=== PATIENT | female | born 1965 | race Two or more races ===

== ENCOUNTER 2023-07-11 08:02 | Outpatient (AMB) | payer MEDICAID, SELFPAY ==
--- NOTE | 2023-07-11 08:05 | A.OFFVIS_ITS ---
Vital Signs 07/11/23 08:12 Height 5 ft 6 in Weight 160 lb BMI 25.8 BP 130/63 Blood Pressure Location Lt brachial Position Sitting Pulse 65 Intake Visit Reasons: Constipation Intake Note: Patient new consult for constipation. Patient cc: constipation, lower abdominal pain, and abdominal inflammation, acid reflex with burning sensation, and swallowing problems, patient feeling throat closing with dry food. Heavy Equipment Plumbing Supervisor Required: Yes Heavy Equipment Plumbing Supervisor Name: Rickie Babb Accompanied by: Self / Same As Patient Allergies No Known Allergies [No Known Allergies*] Allergy (Verified 07/11/23 08:05) Medication List - Last Reconciled 07/11/23 by Audelia Mcdonald PA-C No Known Home Meds HPI Comments Details: 2nd opinion A 57 y/o female referred with chronic constipation- she had an EGD and colonoscopy w/in eduar past year- at [facility]- she had h.pylori- has acid reflux, bloating. She has constipation- taking laxatives- gets abdominal pain-diffuse, nonspecific gets better after BM- She was seen in February by gI @ [facility]- recommended- ceratin foods- cannot recall details She is not taking any medications at all- She has no nausea, vomiting hematemesis, hematochezia fever PFSH Surgical History (Updated 07/11/23 @ 14:02 by Audelia Mcdonald PA-C) Hx of abdominoplasty Hx of total knee replacement Hx of section Family History Father Arthritis Mother HTN (hypertension) Social History Household Members: Family Alcohol intake: never Patient Tobacco Use Status: Never used Tobacco Review of Systems Const All systems reviewed & are unremarkable except as noted in HPI and below Card Denies chest pain GI Reports abdominal pain, Reports bloating, Denies hematochezia, Reports constipation, Reports heartburn, Denies nausea and Denies vomiting Musc Details: arthritis Reports back pain and Reports arthralgias Physical Exam Vital Signs: Last Vital Signs Pulse 65 07/11/23 08:12 BP 130/63 07/11/23 08:12 BMI result Body Mass Index 25.8 Const General: cooperative, healthy appearing, comfortable and no acute distress Orientation/consciousness: patient oriented x3 Limitations: language barrier Eyes Sclerae: sclerae normal Resp Effort & Inspection: normal respiratory effort and able to speak in complete sentences Auscultation: clear to auscultation bilaterally, no rales, no rhonchi and no wheezes Cardio Rate: regular rate Rhythm: regular rhythm Heart sounds: S1 normal heart sound present and S2 normal heart sound present GI Palpation (GI): Soft to palpation and nontender Auscultation: normal bowel sounds Skin General skin exam: no rashes or lesions noted Neuro General: patient oriented x3 Extrem General: Yes full ROM Psych Appearance: grossly normal and well kempt Mental Status: mental status grossly normal Speech and movement: Normal speech and movement present and Clear speech present Affect: Anxious affect present Attitude: cooperative Thought process: Normal thought process present Thought content: Normal thought content present Assessment & Plan Assessment & Plan (1) Abdominal pain: Comment: Diffuse, nonspecific improved with being Code(s): R10.9 - Unspecified abdominal pain Category: Medical (2) Acid reflux: Comment: History H pylori Code(s): K21.9 - Gastro-esophageal reflux disease without esophagitis Category: Medical Plan: H pylori stool antigen if positive will treat (3) Chronic constipation: Code(s): K59.09 - Other constipation Category: Medical Plan: Consistent bowel regimen High-fiber (4) History of Helicobacter pylori infection: Code(s): Z86.19 - Personal history of other infectious and parasitic diseases Category: Medical Plan: Stool antigen (5) History of colonoscopy: Comment: [facility] within 1 year per patient reported as normal Code(s): Z98.890 - Other specified postprocedural states Category: Surgical (6) History of endoscopy: Comment: At [facility] within the past year reported as normal Code(s): Z98.890 - Other specified postprocedural states Category: Surgical Plan HP stool- if positive treat Reflux precautions CBC. CMP, TSH Bowel regimen HFD Get previous records Call with concerns Orders: Orders H pylori Ag Stool Today A04.8 - Other specified bacterial intestinal infections Comprehensive Met. Panel Today K58.9 - Irritable bowel syndrome without diarrhea Complete Blood Count Auto Diff Today K21.9 - Gastro-esophageal reflux disease without esophagitis, K59.09 - Other constipation, R10.9 - Unspecified abdominal pain Thyroid Stimulating Hormone Today R19.8 - Other specified symptoms and signs involving the digestive system and abdomen Medications: New omeprazole 40 mg (2 x 20 mg) PO DAILY 30 caps 5RF docusate sodium (Colace) 200 mg (2 x 100 mg) PO BEDTIME 60 caps 5RF 30 days polyethylene glycol 3350 (Miralax) 17 grams PO DAILY 510 grams 6RF psyllium husk (Metamucil) mix into at least 8 oz of water or juice before administering 1 tbsp PO DAILY 660 grams 5RF 30 days Patient Instructions: HP stool- idf positive treat CBC. CMP, TSH Bowel regimen, lit given HFD maintain hydration Get previous records Call with concerns Coding Level of Care Code New Pt Level 4 (75327) Diagnoses Abdominal pain R10.9 Acid reflux K21.9 Chronic constipation K59.09 History of Helicobacter pylori infection Z86.19 History of colonoscopy Z98.890 History of endoscopy Z98.890 Time Spent (min) 35 Comment [id number], 2nd opinion
[2023-07-11 08:12] VITALS: BP 130/63; PULSE 65; BMI 25.8
== END 2023-07-11 08:50 | disposition home or self-care (01) ==
PROVIDERS: PCP Internal Medicine; Visit Provider Physician Assistant
DX: R10.9 Unspecified abdominal pain (principal); K21.9 Gastro-esophageal reflux disease without esophagitis; K59.09 Other constipation; Z86.19 Personal history of other infectious and parasitic diseases; Z98.890 Other specified postprocedural states
CPT/HCPCS: 99204

== ENCOUNTER → 2023-07-11 08:02 | Outpatient (BNVA) | payer MEDICAID, SELFPAY | PROVIDERS: PCP Internal Medicine; Visit Provider Physician Assistant | DX: K21.9 Gastro-esophageal reflux disease without esophagitis (principal); K59.09 Other constipation; R10.9 Unspecified abdominal pain; Z86.19 Personal history of other infectious and parasitic diseases; Z98.890 Other specified postprocedural states | CPT/HCPCS: 99212 ==

== ENCOUNTER 2023-07-12 13:54 | Outpatient (REF) | payer MEDICAID, SELFPAY | END 2023-07-12 13:55 | disposition home or self-care (01) | LOC: HO.LNP 13:54 | PROVIDERS: Visit Provider Physician Assistant | DX: A04.8 Other specified bacterial intestinal infections (principal) | CPT/HCPCS: 87338 ==

== ENCOUNTER 2023-07-20 12:59 | Outpatient (AMB) | payer MEDICAID, SELFPAY ==
--- NOTE | 2023-07-20 13:01 | MHC.OFFVIS ---
Vital Signs 07/20/23 13:03 Height 5 ft 6 in Weight 161 lb 9.581 oz BMI 26.1 BP 92/60 Blood Pressure Location Rt brachial Position Sitting Pulse 65 Pulse Oximetry (%) 98 Intake Visit Reasons: BL hand OA/lvm Intake Note: New patient, externally referred by Charlotte Hernandez at [facility], presents to office today for ALLA hand OA. Reports generalized myalgias. Formerly seeing a social services analyst, unsure who she saw. Allergies No Known Allergies [No Known Allergies*] Allergy (Verified 07/20/23 13:04) HPI Comments Details: Mrs. Holt 58-year-old female here on referral for evaluation of multiple joint pains. Patient describes that she has with hand pain and stiffness in the morning which takes at least one 1 hour to improve. --the pain suddenly increased to other joints 6 months ago --12 years of arthritis - injections to elbow left 7 years, left heel; none in shoulders. Elbow pain brought on by weight lifting. --currently takes nothing for the joint pain --stomach problems, treated for HPylori --rash - 3 months ago mild rash left side of upper lip, vesicles then went away. --denies sun sensitivity but says she feels more hot in the sun. --no dry eyes; but dry mouth in morning likely due to mouth breathing at night. --swallows food OK; had endoscopy for Hpylori assessment --denies diarrhea, has constipation - uses medication. --no uveiitis, mouth sores. --finds it difficult to brush teeth or comb hair, lifting arms is challenging --hands get painful when she touches her phone, pain travels from palm up arm; burning pain, hand gets sleepy. --no swelling to large joints, lifts left shoulder overhead but not right --Xray to right shoulder [address] [facility]; Did PT - more pain, not helpful --touches toes but feels tightness across lower back. --exercise 1 hour two times per week, 8lb hand weights - but stopped 6 months ago.; Also 10 years ago run 10 miles per week. --denies SOB with activity or lying down --denies Pleuritis, pericarditis. --Right knee scoped to fix tears --Denies TKA and no incision scar seen on PE. --previous Rheum - possible [facility] - treated with injections --done water therapy before for joints --had Tramadol for pain before. GI Visit 07/11/2023: 2nd opinion A 57 y/o female referred with chronic constipation- she had an EGD and colonoscopy w/in eduar past year- at [facility]- she had h.pylori- has acid reflux, bloating. She has constipation- taking laxatives- gets abdominal pain-diffuse, nonspecific gets better after BM- She was seen in February by gI @ [facility]- recommended- ceratin foods- cannot recall details She is not taking any medications at all- She has no nausea, vomiting hematemesis, hematochezia fever [facility] Medical History (Updated 07/25/23 @ 15:45 [facility] Hypovitaminosis D Bilateral chronic knee pain Pain in joint involving multiple sites Osteoarthrosis, generalized, hand Surgical History Hx of abdominoplasty Hx of total knee replacement Hx of section Family History (Updated 07/20/23 @ 13:04 by TRISHA Bailey) Father Arthritis Mother HTN (hypertension) Social History (Updated 07/20/23 @ 13:05 by TRISHA Bailey) Household Members: Family Alcohol intake: never Patient Tobacco Use Status: Never used Tobacco Current occupational status: unemployed Review of Systems Const All systems reviewed & are unremarkable except as noted in HPI and below Physical Exam Vital Signs: Last Vital Signs Pulse 65 07/20/23 13:03 BP 92/60 07/20/23 13:03 Pulse Ox 98 07/20/23 13:03 BMI result Body Mass Index 26.1 APPEARANCE: Patient in no acute distress EYES no redness, normal EARS:? External ear normal. NOSE/SINUS:? Airflow through both nares, no nasal discharge, no bleeding THROAT:? Oral mucosa moist, no ulcerations NECK:? No thyromegaly or masses, no adenopathy, trachea midline. HEART:? Regular rhythm, S1-S2 heard, no murmurs, rubs or gallops. LUNG:? Clear to percussion and auscultation EXTREMITIES:? No edema, no calf tenderness, normal peripheral pulses. NEURO:? Oriented and alert x3.? No focal weakness.? Reflexes symmetric.? Gait normal. SKIN:? There are no skin lesions evident. No objective signs of Raynaud's phenomenon. JOINT EXAM: Cervical Spine:.? Full range of motion without pain; no tenderness. Thoracic Spine:.? No scoliosis.? No tenderness on palpation. Lumbar Spine:.? Alignment normal.? Full range of motion without pain, with tenderness. Chest Wall:.? No tenderness, swelling, increased warmth or erythema. Hands:.? decreased range of motion with tenderness, swelling to DIPS but no increased warmth or erythema. Not able to make a full fist and has decreased comber fixer strength. Wrists:.? Normal range of motion with some tenderness but no swelling, increased warmth or erythema. Elbows:. Normal pain-free range of motion without tenderness, swelling, increased warmth or erythema. Shoulders:.?? Full range of motion without pain. No tenderness, weakness, swelling, increased warmth or erythema. Hips:.? Full range of motion without pain. Hip bursa:.? No tenderness. Knees:.?? Normal range of motion with tenderness around joint line but no swelling, increased warmth or erythema.? There is trace effusion but no crepitation Ankles:.? Normal pain-free range of motion without tenderness, swelling, increased warmth or erythema. Feet:.? Normal pain-free range of motion without tenderness, swelling, increased warmth or erythema. Tender points:? No tenderness to digital palpation at the occiput, trapezius, second rib, lateral epicondyle, knees, greater trochanter and gluteal area bilaterally. ? Results Reviewed Results Reviewed: Laboratory Tests 07/20/23 15:20 WBC 7.4 RBC 4.94 Hgb 14.3 Hct 41.1 ESR 9 C-Reactive Protein < 0.10 25-OH Vitamin D Total 29 L IgG Total 897 IgA Total 123 IgM 70 Rheumatoid Factor < 13.0 Cycl Citrul Peptide IgG <16 BALJIT Screen NEGATIVE Lyme Screen IgG & IgM <0.90 Hepatitis A IgM Ab Nonreactive Hep Bs Antigen Negative Hep B Core Total Ab Nonreactive Hepatitis C Ab (EIA) Nonreactive TB Test Nil Control Passed FINDINGS: Right hand. Mild degenerative changes in the first carpometacarpal joint. Tiny punctate calcifications adjacent to the base. Mild osteoarthritic changes in multiple IP joints, most notable in the fourth and fifth DIP joints. Focal cystic lucency at the head of the third digit middle phalanx. Focal soft tissue swelling adjacent to multiple IP joints. Left hand. Mild degenerative changes in the first carpometacarpal joint. Mild osteoarthritic changes and multiple IP joints, most notable at the fifth digit DIP joint. Focal soft tissue swelling adjacent to multiple IP joints. XR/XR hand RT 2V IMPRESSION: Mild degenerative changes in the bilateral hands. [address] [address] XRay Report Signed Patient: Yanet Lance MR#: [id number] : 1965 Acct:[id number] Age/Sex: 57 / F ADM Date: 07/20/23 Loc: HO.LAB Attending Dr: Sondra WIGGINS Ordering Physician: Sondra Cote Date of Service: 07/20/23 Procedure(s): XR knee RT 3V Accession Number(s): [id number] cc: DEZ HALL MD; Sondra Cote~ Exam: X-rays bilateral knees INDICATION: Pain and unspecified joint TECHNIQUE: 3 views of each knee. COMPARISON: 11/30/2018 FINDINGS: Right knee: Bones are diffusely demineralized. No significant joint effusion. Small tricompartmental osteophytes. Asymmetric lateral narrowing of the patellofemoral compartment. Mild narrowing of the medial and lateral compartments. Left knee: Bones are diffusely demineralized. No significant joint effusion. Small tricompartmental osteophytes. Asymmetric lateral narrowing of the patellofemoral compartment. Mild narrowing of the medial and lateral compartments. Assessment & Plan Assessment & Plan (1) Osteoarthrosis, generalized, hand: Code(s): M15.9 - Polyosteoarthritis, unspecified Category: Medical (2) Pain in joint involving multiple sites: Code(s): M25.50 - Pain in unspecified joint Category: Medical (3) Bilateral chronic knee pain: Code(s): M25.561 - Pain in right knee; M25.562 - Pain in left knee; G89.29 - Other chronic pain Category: Medical Plan #Multiple Joint Pain: Patient with signs of inflammation to her hand IP joints (see PE). We will do further work-up with Rheum labs and joint xrays. She has seen a Rheuamtologist before and has received multiple injections to different joints (HPI). She is not eager to start medications so we will hold prednisone. I think essentially she thinks there may not be an autoimmune component to her joint pain and just wants to be able to be treated acutely. It is not clear if she was offered immunosuppressive treatment before for inflammatory arthritis and refused. She offeres vague recollections of discussions on MTX, HUMIRA. f/u 1 month I spent 35 minutes reviewing history, evaluating patient and documenting Orders: Orders XR hand RT 2V 07/20/23 M15.9 - Polyosteoarthritis, unspecified XR hand LT 2V 07/20/23 M15.9 - Polyosteoarthritis, unspecified Erythrocyte Sedimentation Rate 07/20/23 M15.9 - Polyosteoarthritis, unspecified, M25.50 - Pain in unspecified joint Complete Blood Count Auto Diff 07/20/23 M15.9 - Polyosteoarthritis, unspecified, M25.50 - Pain in unspecified joint Anti-Centromere B Antibodies 07/20/23 M15.9 - Polyosteoarthritis, unspecified, M25.50 - Pain in unspecified joint Aldolase 07/20/23 M15.9 - Polyosteoarthritis, unspecified, M25.50 - Pain in unspecified joint Immunoglobulins,IgG IgA IgM 07/20/23 M15.9 - Polyosteoarthritis, unspecified, M25.50 - Pain in unspecified joint Immunofixation, Random Urine 07/20/23 M15.9 - Polyosteoarthritis, unspecified, M25.50 - Pain in unspecified joint Protein Electrophoresis, Serum 07/20/23 M15.9 - Polyosteoarthritis, unspecified, M25.50 - Pain in unspecified joint Vitamin D 25-OH (D2 and D3) 07/20/23 M15.9 - Polyosteoarthritis, unspecified, M25.50 - Pain in unspecified joint Rheumatoid Factor 07/20/23 M15.9 - Polyosteoarthritis, unspecified, M25.50 - Pain in unspecified joint Comprehensive Met. Panel 07/20/23 M15.9 - Polyosteoarthritis, unspecified, M25.50 - Pain in unspecified joint C Reactive Protein 07/20/23 M15.9 - Polyosteoarthritis, unspecified, M25.50 - Pain in unspecified joint BALJIT Reflex Titer and Pattern 07/20/23 M15.9 - Polyosteoarthritis, unspecified, M25.50 - Pain in unspecified joint Anti DNA DS Antibody 07/20/23 M15.9 - Polyosteoarthritis, unspecified, M25.50 - Pain in unspecified joint Anti Extractable Nuclear Ag 07/20/23 M15.9 - Polyosteoarthritis, unspecified, M25.50 - Pain in unspecified joint Hepatitis A,B,C Profile 07/20/23 M15.9 - Polyosteoarthritis, unspecified, M25.50 - Pain in unspecified joint Lyme IgG/IgM w/reflex to WB 07/20/23 M15.9 - Polyosteoarthritis, unspecified, M25.50 - Pain in unspecified joint Scleroderma 70 Antibody 07/20/23 M15.9 - Polyosteoarthritis, unspecified, M25.50 - Pain in unspecified joint Sjogren's Antibodies 07/20/23 M15.9 - Polyosteoarthritis, unspecified, M25.50 - Pain in unspecified joint T Spot TB 07/20/23 M15.9 - Polyosteoarthritis, unspecified, M25.50 - Pain in unspecified joint Uric Acid 07/20/23 M15.9 - Polyosteoarthritis, unspecified, M25.50 - Pain in unspecified joint Cyclic Citrullinated Peptide 07/20/23 M15.9 - Polyosteoarthritis, unspecified, M25.50 - Pain in unspecified joint XR knee LT 3V 07/20/23 M25.50 - Pain in unspecified joint, M25.561 - Pain in right knee, M25.562 - Pain in left knee, G89.29 - Other chronic pain XR knee RT 3V 07/20/23 M25.50 - Pain in unspecified joint, M25.561 - Pain in right knee, M25.562 - Pain in left knee, G89.29 - Other chronic pain Coding Level of Care Code New Pt Level 4 (53367) Diagnoses Osteoarthrosis, generalized, hand M15.9 Pain in joint involving multiple sites M25.50 Bilateral chronic knee pain M25.561; M25.562; G89.29
[2023-07-20 13:03] VITALS: BP 92/60; PULSE 65; O2SAT 98; BMI 26.1
== END 2023-07-20 13:51 | disposition home or self-care (01) ==
LOC: HO.RHE 12:59
PROVIDERS: PCP Internal Medicine; Visit Provider Nurse Practitioner Family
DX: M15.9 Polyosteoarthritis, unspecified (principal); M25.50 Pain in unspecified joint; M25.561 Pain in right knee; M25.562 Pain in left knee; G89.29 Other chronic pain
CPT/HCPCS: 99204

== ENCOUNTER 2023-07-20 12:59 | Outpatient (REF) | payer MEDICAID, SELFPAY ==
--- NOTE | ~2023-07-20 | XR_ITS ---
Exam: X-rays bilateral knees INDICATION: Pain and unspecified joint TECHNIQUE: 3 views of each knee. COMPARISON: 11/30/2018 FINDINGS: Right knee: Bones are diffusely demineralized. No significant joint effusion. Small tricompartmental osteophytes. Asymmetric lateral narrowing of the patellofemoral compartment. Mild narrowing of the medial and lateral compartments. Left knee: Bones are diffusely demineralized. No significant joint effusion. Small tricompartmental osteophytes. Asymmetric lateral narrowing of the patellofemoral compartment. Mild narrowing of the medial and lateral compartments. XR/XR knee LT 3V IMPRESSION: Mild degenerative changes in the bilateral knees.
--- NOTE | ~2023-07-20 | XR_ITS ---
Exam: X-rays bilateral knees INDICATION: Pain and unspecified joint TECHNIQUE: 3 views of each knee. COMPARISON: 11/30/2018 FINDINGS: Right knee: Bones are diffusely demineralized. No significant joint effusion. Small tricompartmental osteophytes. Asymmetric lateral narrowing of the patellofemoral compartment. Mild narrowing of the medial and lateral compartments. Left knee: Bones are diffusely demineralized. No significant joint effusion. Small tricompartmental osteophytes. Asymmetric lateral narrowing of the patellofemoral compartment. Mild narrowing of the medial and lateral compartments. XR/XR knee RT 3V IMPRESSION: Mild degenerative changes in the bilateral knees.
--- NOTE | ~2023-07-20 | XR_ITS ---
EXAM: X-RAYS BILATERAL HANDS CLINICAL INFORMATION: Polyarthritis unspecified. COMPARISON: None. TECHNIQUE: 3 views of each hand. FINDINGS: Right hand. Mild degenerative changes in the first carpometacarpal joint. Tiny punctate calcifications adjacent to the base. Mild osteoarthritic changes in multiple IP joints, most notable in the fourth and fifth DIP joints. Focal cystic lucency at the head of the third digit middle phalanx. Focal soft tissue swelling adjacent to multiple IP joints. Left hand. Mild degenerative changes in the first carpometacarpal joint. Mild osteoarthritic changes and multiple IP joints, most notable at the fifth digit DIP joint. Focal soft tissue swelling adjacent to multiple IP joints. XR/XR hand RT 2V IMPRESSION: Mild degenerative changes in the bilateral hands.
--- NOTE | ~2023-07-20 | XR_ITS ---
EXAM: X-RAYS BILATERAL HANDS CLINICAL INFORMATION: Polyarthritis unspecified. COMPARISON: None. TECHNIQUE: 3 views of each hand. FINDINGS: Right hand. Mild degenerative changes in the first carpometacarpal joint. Tiny punctate calcifications adjacent to the base. Mild osteoarthritic changes in multiple IP joints, most notable in the fourth and fifth DIP joints. Focal cystic lucency at the head of the third digit middle phalanx. Focal soft tissue swelling adjacent to multiple IP joints. Left hand. Mild degenerative changes in the first carpometacarpal joint. Mild osteoarthritic changes and multiple IP joints, most notable at the fifth digit DIP joint. Focal soft tissue swelling adjacent to multiple IP joints. XR/XR hand LT 2V IMPRESSION: Mild degenerative changes in the bilateral hands.
[2023-07-20 15:24] LABS: MANUAL DIFF FLAG NO
[2023-07-20 15:29] LABS: Basophils Percent Auto 0.4 % (0-2); Eosinophils Absolute Auto 0.2 X10*3/uL (0.0-0.4); Hematocrit 41.1 % (37.0-47.0); Hemoglobin 14.3 g/dl (12.0-16.0); Imm Gran Abs Auto 0.02 X10*3/uL (0.00-0.03); Imm Gran Pct Auto 0.3 % (0.0-0.4); Lymphocytes Absolute Auto 2.8 X10*3/uL (1.2-4.9); Lymphocytes Percent Auto 37.3 % (20-40); Mean Corpuscular HGB Conc 34.8 g/dl (31.0-35.0); Mean Corpuscular Hemoglobin 28.9 pg (27.0-33.0); Mean Corpuscular Volume 83.2 fL (80.0-98.0); Mean Platelet Volume 11.7 fL (9.4-12.3); Monocytes Absolute Auto 0.5 X10*3/uL (0.1-1.2); Neutrophils Absolute Auto 3.9 x10*3/uL (2.0-8.3); Platelet Count 242 X10*3/uL (160-400); Red Blood Count 4.94 X10*6/uL (4.20-5.50); Red Cell Distribution Width 12.4 % (11.0-16.0); White Blood Count 7.4 X10*3/uL (4.8-10.8)
[2023-07-20 16:21] LABS: Uric Acid 4.4 mg/dL (2.4-5.7)
[2023-07-20 16:24] LABS: Erythrocyte Sedimentation Rate 9 MM/HR (0-20)
[2023-07-20 16:29] LABS: Alanine Aminotransferase 18 U/L (0-31); Albumin Level 4.7 g/dL (3.5-5.0); Alkaline Phosphatase 74 U/L (39-117); Anion Gap 15 (12-20); Aspartate Amino Transferase 20 U/L (5-31); Bilirubin Total 0.3 mg/dL (0.0-1.0); Blood Urea Nitrogen 19 mg/dL (9-16); C Reactive Protein < 0.10 mg/dL (< or = 0.50); Calcium 10.1 mg/dL (8.4-10.2); Carbon Dioxide 23 mmol/L (22-29); Chloride 105 mmol/L (96-108); Estimated Glomerular Filt Rate > 60; Glucose Random 108 mg/dL (60-115); Potassium 3.9 mmol/L (3.3-5.1); Sodium 139 mmol/L (135-145); Total Protein 7.7 g/dL (6.5-8.0)
[2023-07-20 16:31] LABS: Rheumatoid Factor < 13.0 IU/mL (<15.0)
[2023-07-20 16:45] LABS: Thyroid Stimulating Hormone 1.99 uIU/mL (0.32-4.0)
[2023-07-21 08:08] LABS: HBS Num1 0.65 mIU/mL (0-7.99); HBc Num1 0.06 S/CO (0.00-0.79); HBsAGNum1 0.28 S/CO (0.00-0.99); Hepatitis A Antibody IgM 0.34 Index (0-0.79); Hepatitis B Core Antibody Nonreactive (Nonreactive); Hepatitis B Surface Antigen Negative (Negative); ~HepC Num1 0.05 S/CO (0.00-0.79); ~Hepatitis A Antibody IgM Nonreactive (Nonreactive); ~Hepatitis B Surface Antibody NONREACTIVE (Nonreactive); ~Hepatitis C Antibody Nonreactive (Nonreactive)
[2023-07-21 20:13] LABS: Anti-Centromere B Antibodies <1.0 NEG AI (<1.0 NEG)
[2023-07-21 21:24] LABS: Lyme Abs Screen <0.90 index
[2023-07-22 00:54] LABS: IgA 123 mg/dL (47-310); IgG 897 mg/dL (600-1640); IgM 70 mg/dL (50-300)
[2023-07-23 16:54] LABS: TS Negative Control Passed; TS Panel A 0; TS Panel B 0; TS Positive Control Passed; TSpotTB Negative (Negative)
[2023-07-24 06:04] LABS: Aldolase 5.3 U/L (<=8.1)
[2023-07-24 14:53] LABS: Anti Nuclear Antibody Screen NEGATIVE (NEGATIVE)
[2023-07-24 16:33] LABS: Cyclic Citrullinated Peptide <16 UNITS
[2023-07-25 13:29] LABS: Vitamin D 25-OH, D2 <4 ng/mL; Vitamin D 25-OH, D3 29 ng/mL; Vitamin D 25-OH, Total 29 ng/mL (30-100)
[2023-07-25 16:43] LABS: Prot Elec - Albumin 4.6 g/dL (3.8-4.8); Prot Elec - Alpha1 0.3 g/dL (0.2-0.3); Prot Elec - Alpha2 0.8 g/dL (0.5-0.9); Prot Elec - Beta 1 0.5 g/dL (0.4-0.6); Prot Elec - Beta 2 0.3 g/dL (0.2-0.5); Prot Elec - Gamma 0.8 g/dL (0.8-1.7); Prot Elec - Total Protein 7.2 g/dL (6.1-8.1)
[2023-07-26 20:09] LABS: Anti DNA DS Antibody <1 IU/mL; Antibody to SS-A Antigen <1.0 NEG AI (<1.0 NEG); Antibody to SS-B Antigen <1.0 NEG AI (<1.0 NEG); SM/Ribonucleoprotein Ab <1.0 NEG AI (<1.0 NEG); Scleroderma 70 Antibody <1.0 NEG AI (<1.0 NEG); Smith Protein <1.0 NEG AI (<1.0 NEG)
== END 2023-07-20 13:00 | disposition home or self-care (01) ==
LOC: HO.LAB 12:59
PROVIDERS: Physician Assistant; PCP Internal Medicine; Visit Provider Nurse Practitioner Family
DX: M15.9 Polyosteoarthritis, unspecified (principal); M25.50 Pain in unspecified joint; M25.561 Pain in right knee; M25.562 Pain in left knee; G89.29 Other chronic pain; R19.8 Other specified symptoms and signs involving the digestive system and abdomen; K58.9 Irritable bowel syndrome, unspecified; K59.09 Other constipation; K21.9 Gastro-esophageal reflux disease without esophagitis; R10.9 Unspecified abdominal pain
CPT/HCPCS: 36415; 73120; 73562; 80053; 82085; 82306; 82784; 84165; 84443; 84550; 85025; 85652; 86038; 86140; 86200; 86225; 86235; 86335; 86431; 86481; 86617; 86618; 86704; 86706; 86709; 86803; 87340; 99212

== ENCOUNTER 2023-08-17 07:47 | Outpatient (AMB) | payer MEDICAID, SELFPAY ==
--- NOTE | 2023-08-17 07:47 | MHC.OFFVIS ---
Vital Signs 08/17/23 07:55 Height 5 ft 6 in Weight 163 lb 2.273 oz BMI 26.3 BP 112/66 Blood Pressure Location Rt brachial Position Sitting Pulse 59 Pulse Source Pulse Oximeter Pulse Oximetry (%) 98 Oxygen Delivery Method Room Air Intake Visit Reasons: multiple joint pain Intake Note: Pt last seen 07/20/23 presents today with complaints of increased joint pain especially right shoulder. Reports issues with stomach unable to take oral meds; using diclofenac gel for pain. 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 Continues to feel about the same. Her main complaint today is right shoulder pain as well as right thumb MCP joint pain. Applies Voltaren gel with little benefit Initial history by Sondra Hermosillo 06/2023: Mrs. Holt 58-year-old female here on referral for evaluation of multiple joint pains. Patient describes that she has with hand pain and stiffness in the morning which takes at least one 1 hour to improve. --the pain suddenly increased to other joints 6 months ago --12 years of arthritis - injections to elbow left 7 years, left heel; none in shoulders. Elbow pain brought on by weight lifting. --currently takes nothing for the joint pain --stomach problems, treated for HPylori --rash - 3 months ago mild rash left side of upper lip, vesicles then went away. --denies sun sensitivity but says she feels more hot in the sun. --no dry eyes; but dry mouth in morning likely due to mouth breathing at night. --swallows food OK; had endoscopy for Hpylori assessment --denies diarrhea, has constipation - uses medication. --no uveiitis, mouth sores. --finds it difficult to brush teeth or comb hair, lifting arms is challenging --hands get painful when she touches her phone, pain travels from palm up arm; burning pain, hand gets sleepy. --no swelling to large joints, lifts left shoulder overhead but not right --[facility] to [facility]; Did PT - more pain, not helpful --touches toes but feels tightness across lower back. --exercise 1 hour two times per week, 8lb hand weights - but stopped 6 months ago.; Also 10 years ago run 10 miles per week. --denies SOB with activity or lying down --denies Pleuritis, pericarditis. --Right knee scoped to fix tears --Denies TKA and no incision scar seen on PE. --previous Rheum - possible [facility] - treated with injections --done water therapy before for joints --had Tramadol for pain before. [facility] Medical History Hypovitaminosis D Bilateral chronic knee pain Pain in joint involving multiple sites Osteoarthrosis, generalized, hand Surgical History Hx of abdominoplasty Hx of total knee replacement Hx of section Family History Father Arthritis Mother HTN (hypertension) Social History Household Members: Family Alcohol intake: never Patient Tobacco Use Status: Never used Tobacco Current occupational status: unemployed Review of Systems [facility] [place] arthralgias, Reports joint swelling and Reports stiffness Physical Exam Vital Signs: Last Vital Signs Pulse 59 08/17/23 07:55 BP 112/66 08/17/23 07:55 Pulse Ox 98 08/17/23 07:55 Oxygen Delivery Method Room Air 08/17/23 07:55 BMI result Body Mass Index 26.3 Const General: cooperative, healthy appearing and comfortable Nutritional Appearance: overweight Orientation/consciousness: patient oriented x3 Limitations: no limitations HEENT Head: Yes normocephalic and Yes atraumatic Mouth: moist mucous membranes Resp Effort & Inspection: normal respiratory effort and able to speak in complete sentences Auscultation: clear to auscultation bilaterally Cardio Rate: regular rate Skin General skin exam: no rashes or lesions noted Neuro General: patient oriented x3 Extrem Other: Osteoarthritic changes of both hands with prominent Heberden's and Vy's nodes Bilateral prominent MCP joints, slight swelling and tenderness, R>L Significantly limited range of motion right shoulder with positive empty can test Osteoarthritic changes of feet Office Procedures Joint Injection/Drain Joint Injection/Drain Primary Site: right shoulder Prep: site was prepped using sterile technique and ethochloride spray was applied Injected: 40 mg of, Kenalog and other (1 mL of 1% lidocaine) Approach Used: posterolateral Procedure: The patient tolerated the procedure well Coding Details: With patient's consent. The right shoulder was prepped ChloraPrep and alcohol. The subacromial space was injected with 40 mg of triamcinolone and 1 cc of lidocaine. Patient tolerated the procedure well no apparent immediate side effects. 76763 - Large joint Procedure code (CPT) selection complete Results Reviewed Results Reviewed: Laboratory Tests 07/20/23 15:20 WBC 7.4 RBC 4.94 Hgb 14.3 Hct 41.1 ESR 9 C-Reactive Protein < 0.10 25-OH Vitamin D Total 29 L IgG Total 897 IgA Total 123 IgM 70 Rheumatoid Factor < 13.0 Cycl Citrul Peptide IgG <16 BALJIT Screen NEGATIVE Lyme Screen IgG & IgM <0.90 Hepatitis A IgM Ab Nonreactive Hep Bs Antigen Negative Hep B Core Total Ab Nonreactive Hepatitis C Ab (EIA) Nonreactive TB Test Nil Control Passed FINDINGS: Right hand. Mild degenerative changes in the first carpometacarpal joint. Tiny punctate calcifications adjacent to the base. Mild osteoarthritic changes in multiple IP joints, most notable in the fourth and fifth DIP joints. Focal cystic lucency at the head of the third digit middle phalanx. Focal soft tissue swelling adjacent to multiple IP joints. Left hand. Mild degenerative changes in the first carpometacarpal joint. Mild osteoarthritic changes and multiple IP joints, most notable at the fifth digit DIP joint. Focal soft tissue swelling adjacent to multiple IP joints. XR/XR hand RT 2V IMPRESSION: Mild degenerative changes in the bilateral hands. [address] [address] XRay Report Signed Patient: Yanet Lance MR#: [id number] : 1965 Acct:[id number] Age/Sex: 57 / F ADM Date: 07/20/23 Loc: HO.LAB Attending Dr: Sondra WIGGNIS Ordering Physician: Sondra Cote Date of Service: 07/20/23 Procedure(s): XR knee RT 3V Accession Number(s): [id number] cc: DEZ HALL MD; Sondra Cote [facility]~ Exam: X-rays bilateral knees INDICATION: Pain and unspecified joint TECHNIQUE: 3 views of each knee. COMPARISON: 11/30/2018 FINDINGS: Right knee: Bones are diffusely demineralized. No significant joint effusion. Small tricompartmental osteophytes. Asymmetric lateral narrowing of the patellofemoral compartment. Mild narrowing of the medial and lateral compartments. Left knee: Bones are diffusely demineralized. No significant joint effusion. Small tricompartmental osteophytes. Asymmetric lateral narrowing of the patellofemoral compartment. Mild narrowing of the medial and lateral compartments. Assessment & Plan Assessment & Plan (1) Generalized osteoarthritis: Code(s): M15.9 - Polyosteoarthritis, unspecified Category: Medical Plan: This is a 58-year-old female presented for evaluation of diffuse joint pain. On exam she has osteoarthritic changes of both hands. Comprehensive serology and inflammatory markers are normal. Clinical picture consistent with generalized osteoarthritis. Her main complaint today is right shoulder which is likely due to subacromial bursitis versus rotator cuff tendinopathy. With patient's consent, right shoulder was injected with Kenalog today. If no improvement in about a month, advised patient to call the clinic, can consider right shoulder MRI to rule out internal derangement (2) Osteoarthritis of hands, bilateral: Code(s): M19.041 - Primary osteoarthritis, right hand; M19.042 - Primary osteoarthritis, left hand Category: Medical Qualifiers: Osteoarthritis type: primary Qualified Code(s): M19.041 - Primary osteoarthritis, right hand; M19.042 - Primary osteoarthritis, left hand Plan: Most symptomatic is the 1st MCP joints. Referred patient to hand surgeon Plan I spent 30 minutes reviewing patient's chart, evaluating patient, ordering diagnostic workup, counseling patient and documenting in the chart Orders: Orders AMB Joint Injection/Aspiration Today M75.51 - Bursitis of right shoulder Referrals Hand Surgery Referral M19.041 - Primary osteoarthritis, right hand, M19.042 - Primary osteoarthritis, left hand Medications: Discontinued polyethylene glycol 3350 (Miralax) Discontinued Reason: Patient no longer taking 17 grams PO DAILY PRN psyllium husk (Metamucil) mix into at least 8 oz of water or juice before administering Discontinued Reason: Patient no longer taking 1 tbsp PO DAILY PRN Coding Level of Care Code Est Pt Level 4 (18621) Diagnoses Generalized osteoarthritis M15.9 Primary osteoarthritis of both hands M19.041; M19.042 Osteoarthritis type: primary CPT Codes Coding - 19766 Large joint: 68805 - Large joint ([id number])
[2023-08-17 07:55] VITALS: BP 112/66; PULSE 59; O2SAT 98; BMI 26.3
== END 2023-08-17 08:38 | disposition home or self-care (01) ==
LOC: HO.RHE 07:47
PROVIDERS: PCP Internal Medicine; Visit Provider Student in an Organized Health Care Education/Training Program
DX: M19.041 Primary osteoarthritis, right hand (principal); M19.042 Primary osteoarthritis, left hand; M25.511 Pain in right shoulder
CPT/HCPCS: 20610; 99214

== ENCOUNTER → 2023-08-17 07:47 | Outpatient (BNVA) | payer MEDICAID, SELFPAY | PROVIDERS: PCP Internal Medicine; Visit Provider Student in an Organized Health Care Education/Training Program | DX: M25.511 Pain in right shoulder (principal); M19.041 Primary osteoarthritis, right hand; M19.042 Primary osteoarthritis, left hand | CPT/HCPCS: 20610; 99212 ==

== ENCOUNTER 2023-09-18 08:09 | Outpatient (AMB) | payer MEDICAID, SELFPAY ==
[2023-09-18 08:12] VITALS: BMI 26.3
--- NOTE | 2023-09-18 08:12 | MHC.OFFVIS ---
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 Patient reports numbness and tingling from the wrist to the hands, as well as multiple locking on fingers. Patient describes pain as stabbing, 4 on a 0-10 pain scale. Reports using diclofenac gel for pain with relief. Patient states she had a previous EMG done because of numbness on the left elbow. Patient also complains of left thumb swelling. 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 Patient reports that this has been ongoing ?for a few months?. The patient reports that her pain is worst in the MCP joint of the right thumb, but reports that pain affects multiple joints throughout the bilateral hands.. The patient also reports that her numbness and tingling only occurs during the day 1 to 2 times a month, but reports that pain, numbness, tingling awakens her from sleep or prevents her from sleeping most nights. The patient reports that she has seen Rheumatology previously, and that they referred her here. Patient reports that due to stomach problems she cannot take NSAIDs, but she was given diclofenac gel, which she reports works well, and she takes Tylenol PM at night to help with pain and sleep, which she reports also helps. No other acute complaints or concerns at this time. [facility] Medical History Hypovitaminosis D Bilateral chronic knee pain Pain in joint involving multiple sites Osteoarthrosis, generalized, hand Surgical History Hx of abdominoplasty Hx of total knee replacement Hx of section Family History Father Arthritis Mother HTN (hypertension) Social History (Updated 09/18/23 @ 08:14 by TRISHA Bailey) Household Members: Family Alcohol intake: never Patient Tobacco Use Status: Never used Tobacco Current occupational status: unemployed Current occupation: RT HAND[employer] Review of Systems Const All systems reviewed & are unremarkable except as noted in HPI and below Physical Exam Vital Signs: BMI result Body Mass Index 26.3 Extrem Other: Patient is alert, oriented, and in no acute distress. Neuro: Median, ulnar, radial nerves motor and sensory intact and sensation is normal to the tips of all digits. Vascular: Cap refill brisk Pain: Patient reports pain and stiffness in bilateral hands, worst in the MCP joint of the R thumb, but also present throughout bilateral hands ROM: With encouragement, patient is able to make a tight closed fist and extend fingers fully Good finger cross Skin: No lacerations or abrasions. General: No ecchymosis, erythema, or evidence of infection. Psych: Appears grossly normal Affect normal Attitude cooperative Results Reviewed Results Reviewed: X-rays obtained on 07/20/23 and independently reviewed by me, Jareth Ramires PA-C, demonstrate mild degenerative changes throughout bilateral hands. No fracture or acute bony abnormality noted. Assessment & Plan Assessment & Plan (1) Osteoarthritis of hands, bilateral: Code(s): M19.041 - Primary osteoarthritis, right hand; M19.042 - Primary osteoarthritis, left hand Category: Medical Qualifiers: Osteoarthritis type: primary Qualified Code(s): M19.041 - Primary osteoarthritis, right hand; M19.042 - Primary osteoarthritis, left hand (2) Numbness and tingling in both hands: Code(s): R20.0 - Anesthesia of skin; R20.2 - Paresthesia of skin Category: Medical Plan 1.Numbness and tingling in bilateral hands Symptoms intermittent, almost daily, worse at night. Patient reports that when her hand goes numb, it is her whole hand, but reports that she is unsure if her small finger truly goes numb or not. Patient is asked if she can test sensation in the small finger the next time she feels her hand goes numb, and patient is amenable to this. Patient will be referred for nerve conduction study and EMG at this time to assess the health of the median and ulnar nerves Patient is amenable to this plan Patient will follow-up after nerve conduction study for review and discussion of further treatment options.. 2. Osteoarthritis of bilateral hands Patient reports pain throughout bilateral hands, but states the pain is worst in the MCP joint of the right thumb Patient is able to make a tight closed fist and extend all fingers fully with encouragement Patient is encouraged to continue with conservative measures that she feels are helping Patient is referred to occupational hand therapy in order to help with hand strengthening, range of motion, and reduction of symptoms Patient is amenable to this plan Patient will follow-up as needed if she notices no improvement of symptoms with occupational hand therapy, sooner with any acute concerns Orders: Orders OT Evaluation and Treatment Today M19.041 - Primary osteoarthritis, right hand, M19.042 - Primary osteoarthritis, left hand NE electromyogram (EMG) Today R20.0 - Anesthesia of skin, R20.2 - Paresthesia of skin NE nerve conduction velocity Today R20.0 - Anesthesia of skin, R20.2 - Paresthesia of skin Coding Level of Care Code New Pt Level 3 (56138) Diagnoses Primary osteoarthritis of both hands M19.041; M19.042 Osteoarthritis type: primary Numbness and tingling in both hands R20.0; R20.2
== END 2023-09-18 08:45 | disposition home or self-care (01) ==
PROVIDERS: PCP Internal Medicine
DX: M19.041 Primary osteoarthritis, right hand (principal); M19.042 Primary osteoarthritis, left hand; R20.0 Anesthesia of skin; R20.2 Paresthesia of skin
CPT/HCPCS: 99203

== ENCOUNTER → 2023-09-18 08:09 | Outpatient (BNVA) | payer MEDICAID, SELFPAY | PROVIDERS: PCP Internal Medicine | DX: M19.041 Primary osteoarthritis, right hand (principal); M19.042 Primary osteoarthritis, left hand; R20.0 Anesthesia of skin; R20.2 Paresthesia of skin | CPT/HCPCS: 99212 ==